=== PATIENT | female | born 1995 | race Caucasian/White ===

== ENCOUNTER 2017-05-30 01:03 | Emergency (ER) | payer SELFPAY ==
[2017-05-30] MEDS ORDERED: Albuterol 2.5 MG/3 ML NEB.SOL* (0.083%) INH ONE (01:41)
[2017-05-30 03:33] LABS: Hematocrit 38 % (35-47); Hemoglobin 12.4 g/dl (12.0-16.0); Mean Corpuscular HGB Conc 33 g/dl (31-36); Mean Corpuscular Hemoglobin 28 pg (27-31); Mean Corpuscular Volume 85 fL (80-97); Mean Platelet Volume 8 um3 (7.4-10.4); Red Blood Count 4.43 10^6/ul (4.0-5.4); Red Cell Distribution Width 13 % (10.5-15); White Blood Count 8.9 10^3/ul (3.5-10.8)
[2017-05-30 03:44] LABS: ALT 8 U/L (7-52); AST 17 U/L (13-39); Albumin 4.1 g/dL (3.2-5.2); Alkaline Phosphatase 41 U/L (34-104); Anion Gap 6 mmol/L (2-11); BUN/Creatinine Ratio 19.7 (8-20); Blood Urea Nitrogen 12 mg/dL (6-24); CO2 Carbon Dioxide 26 mmol/L (22-32); Calcium 8.7 mg/dL (8.6-10.3); Chloride 104 mmol/L (101-111); EGFR African American 160.8 (>60); Glucose 104 mg/dL (70-100); Potassium 3.8 mmol/L (3.5-5.0); Sodium 136 mmol/L (133-145); Total Protein 7.1 g/dL (6.4-8.9)
[2017-05-30] MEDS ORDERED: predniSONE TAB* 20 MG PO ONE (04:26)
[2017-05-30 04:51] VITALS: BP 87/46
--- NOTE | 2017-05-30 06:02 | ED ---
Home [facility] Rebecca, scribed for Navin Cuevauel on 05/30/17 at 0144 . Shortness of Breath - HPI Summary HPI Summary: Pt is a 22 y/o F who presents to ED c/o SOB for 2 days. SOB is described as being unable to take a deep breath. Sx aggravated and alleviated by nothing. Additionally c/o nonproductive cough. Denies wheezing, CP, fever, sore throat, ear pain. Is not on oral contraceptives. FHx asthma, SHx current smoker. - History of Current Complaint Chief Complaint: EDShortnessOfBreath Time Seen by Provider: 05/30/17 01:36 Hx Obtained From: Patient Onset/Duration: Lasting Days - 2 days, Still Present Dyspnea At: Rest - Unable to take a deep breath Aggrevating Factors: Nothing Alleviating Factors: Nothing Associated Signs & Symptoms: Cough (Nonproductive) - Allergy/Home Medications Allergies/Adverse Reactions: Allergies Allergy/AdvReac Type Severity Reaction Status Date / Time Penicillins Allergy Unknown Verified 05/30/17 01:06 Reaction Details PMH/Surg Hx/FS Hx/Imm Hx Respiratory History: Denies: Hx Asthma Infectious Disease History: No Infectious Disease History: Denies: Traveled Outside the [place] in Last 30 Days - Family History Known Family History: Positive: Respiratory Disease - asthma - Social History Occupation: Student Substance Use Type: Reports: None Smoking Status (MU): Current Every Day Smoker Review of Systems Negative: Fever Negative: Sore Throat, Ear Ache Negative: Chest Pain Positive: Shortness Of Breath, Cough - nonpdoctuive, Other - NEGATIVE: Wheezing All Other Systems Reviewed And Are Negative: Yes Physical Exam - Summary Physical Exam Summary: Appearance: Well appearing, no pain distress Skin: warm, dry, reflects adequate perfusion Head/face: normal Eyes: EOMI, JYOTI ENT: normal Neck: supple, nontender Respiratory: CTA, breath sounds present Cardiovascular: RRR, pulses symmetrical Abdomen: nontender, soft Bowel: present Musculoskeletal: normal, strength/ROM intact Neuro: normal, sensory motor intact, A&Ox3 Triage Information Reviewed: Yes Vital Signs On Initial Exam: Initial Vitals Temp Pulse Resp BP Pulse Ox 98.5 F 88 16 133/66 100 05/30/17 01:04 05/30/17 01:04 05/30/17 01:04 05/30/17 01:04 05/30/17 01:04 Vital Signs Reviewed: Yes Diagnostics - Vital Signs Vital Signs Temp Pulse Resp BP Pulse Ox 05/30/17 01:04 98.5 F 88 16 133/66 100 - Laboratory Result Diagrams: 05/30/17 01:58 05/30/17 01:58 Lab Statement: Any lab studies that have been ordered have been reviewed, and results considered in the medical decision making process. - Radiology CXR Xray Interpretation: No Acute Changes Radiology Interpretation Completed By: ED Physician - EKG 0220 Cardiac Rate: Tachycardia - 100 bpm EKG Rhythm: Sinus Tachycardia EKG Interpretation: No acute changes Course/Dx - Course Assessment/Plan: Pt is a 22 y/o F who presents to ED c/o SOB for 2 days. SOB is described as being unable to take a deep breath. Sx aggravated and alleviated by nothing. Additionally c/o nonproductive cough. Denies wheezing, CP, fever, sore throat, ear pain. Is not on oral contraceptives. FHx asthma, SHx current smoker. CXR reveals no acute findings, as read by ED physician. EKG is sinus tachy with no acute findings. Troponin of 0.00. In the ED course, pt received Deltasone and Ventolin. Pt will be D/C to home with Dx of bronchospasm and bronchitis with Rx for Ventolin inhaler and Deltasone and a follow up with her PCP. She understands and agrees. Allergies noted. Elevated BP noted. - Diagnoses Provider Diagnoses: Bronchospasm, Bronchitis Discharge - Discharge Plan Condition: Stable Disposition: HOME Prescriptions: Albuterol HFA INHALER* [Ventolin HFA Inhaler*] 2 puff INH Q6H PRN #1 mdi PRN Reason: Sob/Wheezing predniSONE TAB* [Deltasone TAB*] 40 mg PO DAILY #4 tab Patient Education Materials: Acute Bronchitis (ED), Bronchospasm (ED) [facility]jeev DAVIS [Medical Doctor] - The documentation as recorded by the Home schwarz Rebecca accurately reflects the service I personally performed and the decisions made by , Rojelio Cueva.
--- NOTE | 2017-05-30 08:09 | RAD ---
HISTORY: Shortness of breath COMPARISONS: None VIEWS: 4: Frontal dual-energy and lateral views of the chest. FINDINGS: CARDIOMEDIASTINAL SILHOUETTE: The cardiomediastinal silhouette is normal. LOWELL: The lowell are normal. PLEURA: The costophrenic angles are sharp. No pleural abnormalities are noted. LUNG PARENCHYMA: There is minimal patchy alveolar opacification of the right lung base ABDOMEN: The upper abdomen is clear. There is no subphrenic gas. BONES AND SOFT TISSUES: No bone or soft tissue abnormalities are noted. OTHER: None. IMPRESSION: MINIMAL PATCHY RIGHT BASILAR ATELECTASIS VERSUS CONSOLIDATION.
== END 2017-05-30 04:53 | disposition home or self-care (01) ==
LOC: ED 01:03
DX: R06.02 Shortness of breath (principal); R05 Cough; F17.210 Nicotine dependence, cigarettes, uncomplicated; J98.01 Acute bronchospasm
CPT/HCPCS: 36415; 71020; 80053; 83880; 84484; 84702; 85025; 85379; 85610; 85730; 93005; 94640; 99283; J7512